=== PATIENT | female | born 1970 | race Hispanic/Latino ===

== ENCOUNTER 2022-11-21 16:44 | Emergency (ER) | payer OTHER ==
[~2022-11-21] VITALS: Ht 149.9 cm; Wt 99.3 kg
[2022-11-21] MEDS ORDERED: SODIUM CHLORIDE 0.9% 1000ML 1,000 ML IV STA (17:18)
[2022-11-21 17:30] LABS: BASOPHILS # (AUTO) 0.1 (0.0-0.1); BASOPHILS % 0.7 % (0.0-1.0); EOSINOPHILS # (AUTO) 0.3 (0.0-0.4); EOSINOPHILS % 2.7 % (0.0-6.0); HEMATOCRIT 52.6 % (34.2-44.1); HEMOGLOBIN 16.9 g/dL (12.0-16.0); LYMPHOCYTES # (AUTO) 2.6 (1.0-3.2); LYMPHOCYTES % 25.6 % (18.0-39.1); MEAN CORPUSCULAR HEMOGLOBIN 30.2 pg (28-32); MEAN CORPUSCULAR HGB CONC 32.1 g/dL (31-35); MEAN CORPUSCULAR VOLUME 93.9 fL (81-99); MONOCYTES # (AUTO) 0.6 (0.2-0.8); MONOCYTES % 6.2 % (4.4-11.3); NEUTROPHILS # (AUTO) 6.5 (2.1-6.9); NEUTROPHILS % 64.5 % (38.7-80.0); PLATELET COUNT 259 x10e3/uL (140-360); RED CELL DISTRIBUTION WIDTH 14.6 % (11.7-14.4)
[2022-11-21] MEDS ORDERED: DICYCLOMINE HCL 20 MG/2 ML VIAL IM ONE (17:30)
[2022-11-21 17:35] LABS: CLARITY,URINE CLEAR (CLEAR); COLOR,URINE YELLOW (YELLOW); KETONES,URINE NEGATIVE (NEGATIVE); LEUKOCYTE ESTERASE ,URINE TRACE (NEGATIVE); NITRITE,URINE NEGATIVE (NEGATIVE); PROTEIN,URINE DIPSTICK NEGATIVE (NEGATIVE); URINE UROBILINOGEN 0.2 mg/dL (0.2 - 1)
[2022-11-21 17:42] LABS: INR 0.94; PROTHROMBIN TIME 12.8 seconds (11.9-14.5)
[2022-11-21 17:48] LABS: BACTERIA,URINE RARE /HPF; EPITHELIAL CELLS,URINE MANY /LPF
[2022-11-21 17:50] LABS: ALANINE AMINOTRANSFERASE 19 IU/L (0-55); ALBUMIN 3.9 g/dL (3.5-5.0); ALKALINE PHOSPHATASE 75 IU/L (40-150); ANION GAP 12.9 mmol/L (8-16); BLOOD UREA NITROGEN 14 mg/dL (7-26); BUN/CREATININE RATIO 13 (6-25); CALCIUM 9.1 mg/dL (8.4-10.2); CARBON DIOXIDE 28 mmol/L (22-29); CHLORIDE 106 mmol/L (98-107); CREATINE KINASE 76 IU/L (29-168); CREATININE, SERUM 1.04 mg/dL (0.57-1.11); GLUCOSE 102 mg/dL (74-118); LIPASE 48 U/L (8-78); MAGNESIUM 2.1 MG/DL (1.3-2.1); POTASSIUM 3.9 mmol/L (3.5-5.1); SODIUM 143 mmol/L (136-145)
[2022-11-21] MEDS ORDERED: IOPAMIDOL 370 MG/ML 100 ML INFUS..BTL INJ ONE (18:33)
[2022-11-21] MEDS ORDERED: CEFDINIR300 MG PO (19:46)
[2022-11-21 19:54] VITALS: BP 134/77
== END 2022-11-21 20:02 | disposition home or self-care (01) ==
LOC: ER 16:47
DX: R10.10 Upper abdominal pain, unspecified (principal); N39.0 Urinary tract infection, site not specified; E11.9 Type 2 diabetes mellitus without complications
CPT/HCPCS: 36415; 74177; 80053; 81001; 82550; 82553; 83690; 83735; 84484; 85025; 85610; 85730; 87086; 99284; C9113; J0500; J7030; Q9967